=== PATIENT | male | born 1980 | race Caucasian/White ===

== ENCOUNTER 2016-04-11 10:00 | Day surgery (SDC) | payer OTHER ==
[~2016-04-11 10:00] MED LIST: LISI-567 PO; OMPR20CCR PO
--- NOTE | 2016-04-11 12:12 | NUR ---
No show no call Addendum: 04/11/16 at 1611 by REMY PRATT RN Phlebotomy Phlebotomy performed without fail, VSS.
[2016-04-11 15:30] VITALS: BP 135/83; PULSE 73; RESP 16; O2SAT 93
[2016-04-11 15:40] VITALS: BP 129/81; PULSE 73; RESP 16; O2SAT 93
[2016-04-11 15:45] VITALS: BP 135/83; PULSE 73; RESP 16; O2SAT 98
== END 2016-04-11 23:59 | disposition home or self-care (01) ==
LOC: MOCO 10:00
PROVIDERS: ATTEND Internal Medicine Hematology & Oncology
DX: E83.119 Hemochromatosis, unspecified (principal)

== ENCOUNTER 2016-06-11 00:15 | Day surgery (SDC) | payer OTHER ==
--- NOTE | 2016-05-09 11:16 | NUR ---
No call no show
[2016-06-11 09:00] VITALS: BP 147/82; PULSE 83; RESP 16; O2SAT 94
--- NOTE | 2016-06-11 10:29 | NUR ---
Phlebotomy Phlebotomy performed for HCT 48.3 without fail, VSS throughout. Pt denies dizziness or SOB.
== END 2016-06-11 23:59 | disposition home or self-care (01) ==
LOC: MOCO 00:15
PROVIDERS: ATTEND Internal Medicine Hematology & Oncology
DX: E83.119 Hemochromatosis, unspecified (principal)